=== PATIENT | female | born 1930 | race Caucasian/White ===

== ENCOUNTER 2016-09-10 14:28 | Inpatient (IN) | payer MEDICARE ==
[~2016-09-10] VITALS: Ht 167.6 cm; Wt 79.1 kg
[~2016-09-10 14:28] MED LIST: AMLO5TAB2 PO; CEPH500C PO; CHOL10008 PO; CLOP75TA3 PO; FLAX1CAP4 PO; METO25TA6 PO; MULT-1073 PO; NITR0.4T SL; PRAV20TA2 PO; RANI150C4 PO; VIT1CAPS8 PO
[2016-09-10 14:39] VITALS: BP 160/50; PULSE 64; RESP 20; O2SAT 99
--- NOTE | 2016-09-10 14:40 | ED.REPORT ---
HPI-Neurologic Deficit Date of Service Sep 10, 2016 ED Provider: Zane Jain DO. Patient is an 86 year female with a history of TIA, hypertension, sensory issues in her lower extremities and multiple other concerns presenting to the ED via EMS complaining of a near syncopal event. While the patient was sitting with friends after lunch, she suddenly had tunnel vision with "black spots all over and big white lights" and felt as though she was going to lose consciousness. She also admits to diaphoresis, weakness, fatigue, and a brief episode of aphasia. All of her symptoms except for the fatigue and weakness resolved within moments. The patient denies paralysis on one side of her body, pain or vision loss. She experienced similar symptoms without the neurological deficit in 05/2016. Nursing Notes Stated Complaint: ALTERED LOC Chief Complaint: Neuro Symptoms/ Deficits Nursing Notes Reviewed: Yes Allergies: Coded Allergies: iodine (Verified Allergy, Severe, Anaphylaxis, 03/28/15) latex (Verified Allergy, Severe, Rash, 03/28/15) amoxicillin (Verified Allergy, Unknown, 09/10/16) clavulanic acid (Verified Allergy, Unknown, 09/10/16) levofloxacin (Verified Allergy, Unknown, 09/10/16) simvastatin (Verified Allergy, Unknown, 09/10/16) hydrocodone (Verified Adverse Reaction, Intermediate, 03/28/15) CARDIAC PALPITATIONS Scheduled Amlodipine (Amlodipine) 5 Mg Tablet 10 MG PO DAILY Cephalexin (Cephalexin) 500 Mg Capsule 500 MG PO TID Cholecalciferol (Vitamin D3) (Vitamin D3) 1,000 Unit Tab.chew 1,000 UNIT PO DAILY Clopidogrel Bisulfate (Plavix) 75 Mg Tablet 75 MG PO DAILY Flaxseed/Omega3,6,9/Fatty Acid (Flax Seed Oil 1,300 mg Softgel) 1 Each Capsule 1 EACH PO DAILY Metoprolol Tartrate (Metoprolol Tartrate) 25 Mg Tablet 25 MG PO BID Multivits-Min/FA/Lycopene/Lut (Centrum Silver Tablet) 1 Each Tablet 1 EACH PO DAILY Pravastatin (Pravastatin) 20 Mg Tablet 20 MG PO DAILY Ranitidine (Ranitidine) 150 Mg Capsule 150 MG PO BID Vit C/Vit E/Lutein/Min/[place]-3 (Ocuvite Softgel) 1 Each Capsule 1 EACH PO DAILY Scheduled PRN Nitroglycerin SL (Nitrostat) 0.4 Mg Tablet 0.4 MG SL Q5MIN PRN PRN For Chest Pain General Time Seen by Provider: 14:44 Chief Complaint Other (possible near syncopal episode) Hx Obtained From: Patient, EMS Arrived By: Ambulance Sudden in Onset?: Yes Recent Healthcare: No recent hospitalization, Recent doctor visit Similar Sx Previous: Yes Risk Factors NIH Stroke Scale Level of Consciousness: Alert and responsive (0) Ask Month & Age: Both questions right (0) Open/Close Eyes/Hand Grades 1 Thru 5 Teacher: Performs both tasks (0) Horizontal EO Movements: None (0) Visual Boyd: No visual loss (0) Facial Palsy: Minor paralysis (1) (slight facial droop on the left side) Right Arm Motor Drift (10s): No drift 10 sec (0) Left Arm Motor Drift (10s): No drift 10 sec (0) Right Leg Motor Drift (5s): No drift 5 sec (0) Left Leg Motor Drift (5s): No drift 5 sec (0) Limb Ataxia FNF/Heel-Suggs: No ataxia (0) Sensation (Arms/Legs/Face): P-prick dull but felt (1) (left leg, pre- existing) Language Aphasia: No aphasia, normal (0) Dysarthria: No dysarthria, normal (0) Extinction/Inattention: No exctinct/inattent (0) NIHSS Score: 2 Time NIHSS Performed: 14:45 Date NIHSS Performed: Sep 10, 2016 Past Medical History Past Medical History Notes: Cook Helper Dessert: Dr. Seaman PCP: Dr. Rodríguez Cantrell Past Medical History Cataracts Hiatal hernia pneumonia kidney stones sensory issues in lower extremities DJD skin cancer Reports: Hypertension, Stroke, Transient ischemic attack Past Surgical History bilateral knee replacement bladder back surgery Reports: Appendectomy, Cholecystectomy, Hysterectomy Family History Noncontributory Smoking History Former Smoker Social History Alcohol Use: Denies alcohol use Drug Use: Denies drug use Other Social History: Local resident Ambulatory Status Independent Review of Systems Review of Systems Note: brief episode of aphasia denies paralysis denies vision loss Constitutional: Reports: Fatigue Respiratory: Denies: Non-productive cough, Shortness of breath Cardiovascular: Denies: Chest pain GI: Denies: Abdominal pain Musculoskeletal: Denies: Back pain, Neck pain Skin: Reports Diaphoresis Neurologic: Reports: Change LOC, Lightheaded, Vision change ("black spots all over and big white lights"), Weakness, Denies: Numbness Complete sys rev & neg: except as marked. Physical Exam Initial Vital Signs Vital Signs (First) Date Time Temp Pulse Resp B/P Pulse Ox O2 Delivery O2 Flow Rate FiO2 09/10/16 14:39 36.4 64 20 160/50 99 Nasal Cannula 2 Initial VS: Reviewed General/Constitutional: Awake, Alert, No acute distress Head / Eyes: Atraumatic, Normocephalic, PERRL, EOMI Respiratory / Chest: Atraumatic, Breath sounds NL, Breath sounds = bilat, No respiratory distress Cardiovascular: Heart rate NL, Regular rhythm Heart Sounds / Murmur: Positive: Systolic murmur present.. (at the upper right sternal border) Neurologic: Oriented X3, Speech NL ENT: Atraumatic, Airway patent, Mucous membranes moist Neck: Atraumatic, Supple, Full range of motion Abdomen: Atraumatic, Soft, Non-tender Back: Atraumatic, Full range of motion Upper Extremity / MS: Atraumatic, Full range of motion Lower Extremity / Pelvis / MS: Atraumatic, Full range of motion Skin: Atraumatic, Color NL, No rash, Warm, Dry Psychiatric: Affect NL, Mood NL Interpretation & Diagnostics Lab Results Interpretation Result Diagram: 09/10/16 1454 09/10/16 1454 Test 09/10/16 14:54 09/10/16 15:18 White Blood Count 6.5th/mm3 (3.8-10.1) Red Blood Count 4.03mil/mm3 (3.90-5.20) Hemoglobin 12.1g/dL (12.0-15.6) Hematocrit 35.6% (35.0-46.0) Mean Corpuscular Volume 88.3fL (81-100) Mean Corpuscular Hemoglobin 30.0pg (27.0-35.0) Mean Corpuscular Hemoglobin Concent 34.0% (32.0-37.0) Red Cell Distribution Width 12.4% (12.3-15.4) Platelet Count 257bil/L (150-400) Neutrophils (%) (Auto) 54.8% (40-74) Lymphocytes (%) (Auto) 29.7% (14-46) Monocytes (%) (Auto) 12.4% (4-12) Eosinophils (%) (Auto) 2.6% (0-5) Basophils (%) (Auto) 0.3% (0-3) Prothrombin Time 10.6sec (8.1-12.5) Prothromb Time International Ratio 0.99ratio Activated Partial Thromboplast Time 21.4sec (22.8-33.0) Sodium Level 137mEq/L (134-144) Potassium Level 3.8mEq/L (3.5-5.2) Chloride Level 99mEq/L (97-108) Carbon Dioxide Level 22mmol/L (18-29) Blood Urea Nitrogen 29mg/dL (8-27) Creatinine 1.52mg/dL (0.57-1.00) Estimat Glomerular Filtration Rate 47mL/min (>59) Glucose Level 135mg/dL (60-99) Calcium Level 9.8mg/dL (8.5-10.1) Total Bilirubin 0.5mg/dL (0.0-1.2) Aspartate Amino Transf (AST/SGOT) 20U/L (0-50) Alanine Aminotransferase (ALT/SGPT) 14U/L (0-32) Alkaline Phosphatase 50U/L (25-165) Troponin T < 0.010ug/L (0.0-0.011) Total Protein 7.3g/dL (6.4-8.4) Albumin 4.1g/dL (3.4-5.0) Hold Purple Top Tube Received (Received) Hold Blue Top Tube Received (Received) Hold [place] Top Tube Received (Received) Hold [place] Top Tube Received (Received) ECG Interpretation ECG Interpretation: RBBB Time: 15:21 Interpreted by: ED physician Normal ECG Interpretation: Normal rate (60), Normal sinus rhythm X-Ray Chest Interpretation Chest Xray Interpretation: IMPRESSION: Stable chest. No acute cardiopulmonary process is suspected. Dictated by: Jostin Smith M.D. on 09/10/2016 at 14:24 Approved by: Jostin Smith M.D. on 09/10/2016 at 14:24 Interpretation / Wet Read by: Interpret - Radiologist X-Ray Interpretation Xray Interpretation: CT Head Interpretation IMPRESSION: 1. No acute intracranial abnormalities. 2. Stable cerebral volume loss and chronic microvascular ischemic changes. 3. A small air-fluid level in the left maxillary sinus. This study fulfills neurological imaging criteria for inclusion or exclusion of acute stroke therapies based on available published neurological guidelines. Dictated by: Tk Uriostegui M.D. on 09/10/2016 at 15:08 Approved by: Tk Uriostegui M.D. on 09/10/2016 at 15:11 Interpretation / Wet Read by: Interpret - Radiologist Re-Eval/Medical Decision Med Decision/Clinical Course Concern for either unprovoked syncope which could be cardiogenic or possibly a CVA. Patient will be admitted. Source of Hx: Old records Re-Evaluation/Progress #1: Time of Eval: 15:04 Patient Status: Condition improved Re-Evaluation/Progress Note: Rechecked patient and discussed the risks, benefits and alternatives to TPA. The patient declines TPA. All questions were addressed. Re-Evaluation/Progress #2: Time of Eval: 15:36 Patient Status: Condition improved Re-Evaluation/Progress Note: Patient rechecked, who is resting. The diagnosis and plan for admission are discussed. The pt understands and agrees with the plan. All questions are addressed at this time. Consultation #1: Referral / Consult Name: Marina Dougherty MD Consulted With: Neurology Call Returned at: 15:46 Scalehouse Attendant: Agrees with eval, Agrees with plan Note: Consult with Dr. Dougherty, neurologist, who recommends admission on telemtry and that the patient needs a stroke workup and echo. Consultation #2: Referral / Consult Name: Elissa Sahu DO Consulted With: Hospitalist Call Returned at: 16:18 Scalehouse Attendant: Agrees with eval, Agrees with plan, Accepts admit Note: Consult with Dr. Sahu, hospitalist, who agrees with the plan to admit the patient. Counseled Regarding: Diagnosis, Lab results, Need for admission Discharge & Departure Impression: Primary Impression: Near syncope Additional Impression: CVA (cerebral vascular accident) Disposition: ADMITTED TO HOSPITAL Discharge Condition All VS Reviewed: Yes Condition: Stable Referrals: Rodríguez Cantrell MD (PCP) Scribe Attestation Portions of this note were transcribed by Olimpia Smith and Tony Salazar. I, Dr. Phillip personally performed the history, physical exam and medical decision-making; I reviewed and confirmed the accuracy of the information in the transcribed note. Signed by: Olimpia Smith and Fanny Sarmiento, and [phone]. copies to: Rodríguez Cantrell MD, Timothy S DO Sep 10, 2016 14:40 Marni Smith Sep 10, 2016 14:50 TONY SALAZAR Sep 10, 2016 16:44
[2016-09-10] MEDS ORDERED: 0.9% Sodium Chloride 1,000 ML IV ONE (14:51)
[2016-09-10 15:03] LABS: BASOPHILS % (AUTO) 0.3 % (0-3); EOSINOPHILS % (AUTO) 2.6 % (0-5); MONOCYTES % (AUTO) 12.4 % (4-12); Mean Corpuscular Volume 88.3 fL (81-100); NEUTROPHILS % (AUTO) 54.8 % (40-74); Platelet Count 257 bil/L (150-400)
[2016-09-10 15:07] LABS: INR 0.99 ratio
[2016-09-10 15:09] VITALS: BP 146/43; PULSE 64; RESP 20; O2SAT 100
--- NOTE | 2016-09-10 15:12 | DRSVH ---
PROCEDURE: CT BRAIN (TPA) ([id number]) INDICATIONS: Stroke TECHNIQUE: Noncontrast 4.5 mm thick angled axial sections acquired from the foramen magnum to the vertex, with c oronal reformats. COMPARISON: [facility], CT, BRAIN W/O CONTRAST, 10/14/2013, 13:36. FINDINGS: Image quality: Excellent. CSF spaces: Basal cisterns are patent. No extra-axial fluid collections. The ventricles are symmet seema in size and shape. Brain: No intracranial bleeds or masses. There is moderate cerebral volume loss for age, with resul tant ventricular and sulcal prominence. There are mild to moderate periventricular and deep white ma tter chronic small vessel ischemic changes, unchanged. There is intracranial internal carotid artery atherosclerosis. Skull and face: Calvarium and visualized facial bones appear intact, without suspicious lesions. Sinuses: Small air-fluid level in the left maxillary sinus. The mastoids are clear. IMPRESSION: 1. No acute intracranial abnormalities. 2. Stable cerebral volume loss and chronic microvascular ischemic changes. 3. A small air-fluid level in the left maxillary sinus. This study fulfills neurological imaging criteria for inclusion or exclusion of acute stroke therapie s based on available published neurological guidelines. Dictated by: Tk Uriostegui M.D. on 09/10/2016 at 15:08 Approved by: Tk Uriostegui M.D. on 09/10/2016 at 15:11
[2016-09-10 15:22] LABS: TROPONIN T < 0.010 ug/L (0.0-0.011)
--- NOTE | 2016-09-10 15:26 | DRSVH ---
PROCEDURE: X-RAY CHEST ONE VIEW, PORTABLE ([id number]) INDICATIONS: near syncope TECHNIQUE: One view of the chest was acquired. COMPARISON: [facility], CR, XR CHEST 1VW (PORTABLE), 04/15/2016, 14:17. [facility], CR, XR CHEST 2VW, 03/27/2016, 15:17. FINDINGS: Surgical changes and devices: None. Lungs and pleura: No pleural effusions or pneumothorax. Lungs are clear. Mediastinum: Mediastinal contours appear normal. Heart size is normal. There is aortic atheroscler osis. Bones and chest wall: No suspicious bony lesions. Calcific tendinitis of the right shoulder is inci dentally noted. Overlying soft tissues appear unremarkable. IMPRESSION: Stable chest. No acute cardiopulmonary process is suspected. Dictated by: Jostin Smith M.D. on 09/10/2016 at 14:24 Approved by: Jostin Smith M.D. on 09/10/2016 at 14:24
[2016-09-10] MEDS ORDERED: Alum-Mag Hydrox-Simeth 30 mL Suspension PO PRN (16:25)
[2016-09-10] MEDS ORDERED: Ondansetron 2 mg/mL 2 mL Inj IVPUSH PRN (16:25)
[2016-09-10 16:36] VITALS: BP 146/43; PULSE 64; RESP 16; O2SAT 100
--- NOTE | 2016-09-10 17:00 | NUR ---
Evaluation completed. Please go to "Notes" then click on "Assessments and Notes" (bottom left corner of screen). Then select appropriate discipline tab on top of screen.
--- NOTE | 2016-09-10 17:20 | NUR ---
ADMIT Report received from Mariah Josue RN in ED. Pt brought onto floor at 1720 via WC. Pt strong and steady on feet. SBA for safety. Pt oriented to unit, room, and call light. Board updated with plan and directions given to maintain safety and promote care. Neuro checks show no deficits. Very minor R side fascial droop from previous CVA told in report and to continue to monitor for changes. Tele placed, socks on, and belongings waivers signed. MED REC completed, and admission interventions completed.
[2016-09-10] MEDS ORDERED: LABE300T PO (17:35)
[2016-09-10] MEDS ORDERED: CLOP75TA28 PO (17:35)
[2016-09-10] MEDS ORDERED: DILT180C53 PO (17:35)
[2016-09-10] MEDS ORDERED: PRAV40TA PO (17:35)
[2016-09-10] MEDS ORDERED: LISI10TA PO (17:35)
[2016-09-10] MEDS ORDERED: DEXT1DRO8 BOTH_EYES (17:56)
[2016-09-10] MEDS ORDERED: PRV40T PO (17:57)
[2016-09-10 18:07] VITALS: BP 181/62; PULSE 63; RESP 20; O2SAT 99
[2016-09-10] MEDS ORDERED: Heparin 5,000 Unit/mL Inj SUBQ SCH (18:15)
[2016-09-10] MEDS ORDERED: Labetalol 5 mg/mL 4 mL Inj IVPUSH PRN (18:15)
[2016-09-10] MEDS ORDERED: Polyethylene Glycol (PEG) 17 Gm Powder PO PRN (18:15)
[2016-09-10 18:45] LABS: Magnesium 2.3 mg/dL (1.6-2.6)
[2016-09-10 19:04] VITALS: PULSE 69
[2016-09-10] MEDS ORDERED: LORazepam 0.5 mg Tablet PO ONE (20:15)
--- NOTE | 2016-09-10 20:33 | PCM.HPMED ---
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 She states that she just felt like she had tunnel vision with black and white spots and they felt like she was about to lose consciousness. At the time she felt light light headed, was diaphoretic, felt to week in arms and legs, fatigue and said she was aphasic. All her symptoms quickly resolved. She was taken to the ER where stroke assessment was done a stroke scale of 2 was given TPA was offered and patient declined. She confirms this in the room. She was given baby aspirin. Her troponin was negative. Chest x-ray was no acute except small air-fluid level in the maxillary sinus. EKG showed right bundle branch block. Labs showed a creatinine of 1.5 to B UN of 29. A CT of head showed only chronic microvascular ischemic changes and negative for acute findings. Patient currently has mild headache, no weakness nor numbness tingling over the face no chest pain no abdominal pain no indigestion. She denies shortness of breath An echo done on 05/15/15 showed 60-65% E ejection fraction, moderate dilation of left atrium, mild increased dimetria V aorta. In the room patient states she is back to her baseline, her weakness symptoms have resolved completely, she is carrying on a conversation in fact she was able to give very detailed history. She is a great historian. Review of Systems: On review of systems negative except as mentioned in the history of present illness Allergies Coded Allergies: iodine (Verified Allergy, Severe, Anaphylaxis, 09/10/16) latex (Verified Allergy, Severe, Rash, 09/10/16) amoxicillin (Verified Allergy, Unknown, 09/10/16) clavulanic acid (Verified Allergy, Unknown, 09/10/16) levofloxacin (Verified Allergy, Unknown, 09/10/16) simvastatin (Verified Allergy, Unknown, 09/10/16) hydrocodone (Verified Adverse Reaction, Intermediate, 09/10/16) CARDIAC PALPITATIONS PMH CVA, TIA, hypertension, sensory issues in the lower extremities, DVT in left leg 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, cataracts, had a hernia, small pneumonia, stones, skin cancer Surgical History Bilateral knee replacements, latter surgery, back surgery, appendectomy, cholecystectomy, hysterectomy Family History Mother: Heart disease Dad: of heart disease at 69 Social History Hx Alcohol Use: No Hx Substance Use: No Hx Tobacco Use: Yes (Quit 1966) Smoking Status: Former Smoker Living Arrangement: Alone Exam Vital Signs Vital Sign - Last Date Time Temp Pulse Resp B/P Pulse Ox O2 Delivery O2 Flow Rate FiO2 09/10/16 16:36 64 16 146/43 100 Room Air 09/10/16 14:39 36.4 2 Exam Gen.: No acute distress HEENT: Left facial droop can be seen, otherwise normocephalic atraumatic Heart: Regular rate and rhythm no S3-S4 murmurs Lungs: Clear to auscultation no crackles or wheezes Abdomen soft nontender non-normal bowel sounds Extremities: Negative for edema Skin: Surgical moody in both knees are seen Neuro: CN II through XII: With the exception of facial droop grossly normal. Somewhat unsteady with Romberg's but did not lose balance are negative for arm drift, was able to do finger to nose, heel to wang test. Babinski's toes down. Achilles reflexes 1+ Psych: Negative for anxiety Lab and Diagnostics Result Diagram: 09/10/16 1454 09/10/16 1454 X-Rays, CTs and MRIs [facility] Diagnostic Imaging Department [place], [place] [id number] Patient Name: DALLIN BEY MR#: [id number] [place] [facility] [place]ing Phys: Zane Phillip DO Date of Service: 09/10/16 1451 PROCEDURE: CT BRAIN (TPA) ([id number]) INDICATIONS: Stroke TECHNIQUE: Noncontrast 4.5 mm thick angled axial sections acquired from the foramen magnum to the vertex, with coronal reformats. COMPARISON: [facility], CT, BRAIN W/O CONTRAST, 10/14/2013, 13:36. FINDINGS: Image quality: Excellent. CSF spaces: Basal cisterns are patent. No extra-axial fluid collections. The ventricles are symmetric in size and shape. Brain: No intracranial bleeds or masses. There is moderate cerebral volume loss for age, with resultant ventricular and sulcal prominence. There are mild to moderate periventricular and deep white matter chronic small vessel ischemic changes, unchanged. There is intracranial internal carotid artery atherosclerosis. Skull and face: Calvarium and visualized facial bones appear intact, without suspicious lesions. Sinuses: Small air-fluid level in the left maxillary sinus. The mastoids are clear. IMPRESSION: 1. No acute intracranial abnormalities. 2. Stable cerebral volume loss and chronic microvascular ischemic changes. 3. A small air-fluid level in the left maxillary sinus. This study fulfills neurological imaging criteria for inclusion or exclusion of acute stroke therapies based on available published neurological guidelines. Dictated by: Tk Uriostegui M.D. on 09/10/2016 at 15:08 Approved by: Tk Uriostegui M.D. on 09/10/2016 at 15:11 12-lead ECG A bundle-branch block Assessment & Plan This is a pleasant 86-year-old woman presenting after stroke like symptoms to the ER she is currently being followed with MRI and other stroke workup Acute assessment Assessment #1 CVA --Consulted her neurologist Dr. Kristin Dougherty, she recommends an subcutaneous for DVT prophylaxis, MRI/MRA stroke protocol, echo tomorrow a.m., labetalol when necessary for hypertension, Plavix daily, we appreciate her recommendations -- Telemonitoring -- MRI/MRA stroke protocol is ordered -- Echo tomorrow a.m. -- Continue Plavix -- Labetalol when necessary with parameters for blood pressure control -- Speech therapy, PT/OT -- Carotid ultrasound Assessment #2 Anxiety: -- Patient is requesting minor sedation prior to MRI due to claustrophobia -- 0.5 mg by mouth Ativan 1 time dose only to be used for MRI Chronic assessments: Assessment #2 GERD: The by mouth Assessment #3 Chronic Hypertension: Hold home medications, labetalol when necessary as above DVT prophylaxis: Heparin subcutaneous 3 times a day IV fluids: 80 mL/h nss CODE STATUS: Currently patient is saying she is okay with CPR but does not want mechanical ventilation or light support. Alternate decision-maker Ovidio Bey [phone] Resuscitation Status: Limited Interventions (okay with CPR, does not want mechanical life support or intubation or ventilation) Elissa Sahu DO Sep 10, 2016 17:23
[2016-09-10] MEDS ORDERED: PRAVASTATIN 40 MG PO SCH (21:00)
[2016-09-10 21:18] VITALS: BP 183/82; PULSE 66; RESP 18; O2SAT 99
[2016-09-10] MEDS: Heparin 5,000 Unit/mL Inj SUBQ SCH (21:33)
[2016-09-10] MEDS: 0.9% Sodium Chloride 1,000 ML IV SCH (21:34)
--- NOTE | 2016-09-10 21:47 | DRSVH ---
PROCEDURE: MRA ANGIOGRAM HEAD WITHOUT CONTRAST ([id number]) INDICATIONS: MOUTH DROOP/ CVA SYMPTOMS TECHNIQUE: Noncontrast axial 3-D ulba-rb-oqefix MR angiogram, with 3-dimensional maximum intensity projection (M IP) reformats of the internal carotid arteries and posterior circulation then performed. COMPARISON: [facility], MR, MR BRAIN WO CON, 09/10/2016, 20:49. [facility], CT, BRAIN (TPA), 09/10/2016, 15:01. FINDINGS: Image quality: Excellent. Anterior circulation: Intracranial internal carotid arteries demonstrate normal size and intralumina l flow signal. The flow within the paired anterior cerebral arteries is normal and symmetric. The f low within the middle cerebral arteries is normal and symmetric. The anterior communicating artery i s seen. No stenoses, occlusions, or aneurysms. Posterior circulation: Visualized portions of the vertebral arteries demonstrate normal caliber, and join to form a normal appearing basilar artery. The flow within the posterior cerebral arteries is normal and symmetric. No stenoses, occlusions, or aneurysms. IMPRESSION: Normal intracranial MR angiogram. Dictated by: Dylan Yi M.D. on 09/10/2016 at 21:44 Approved by: Dylan Yi M.D. on 09/10/2016 at 21:46
--- NOTE | 2016-09-10 21:49 | DRSVH ---
PROCEDURE: MRI BRAIN WITHOUT CONTRAST ([id number]) INDICATIONS: Mouth droop/CVA sxs TECHNIQUE: Noncontrast axial T1 spin echo, axial T2 fast spin echo, sagittal and axial FLAIR, coronal T2 fast sp in echo, axial gradient echo, axial diffusion and ADC through the brain. COMPARISON: [facility], MR, MR ANGIO HEAD WO CON, 09/10/2016, 20:44. [facility], CT, BRAIN (TPA), 09/10/2016, 15:01. FINDINGS: Image quality: Excellent. CSF Spaces: Basal cisterns are patent. No extra-axial fluid collections. Ventricles are normal in size and shape. Brain: No intracranial masses or hemorrhage. Mantilla/white matter interface is normal. Brainstem appe ars normal. Diffusion-weighted images demonstrate no acute ischemic insult. No chronic ischemic ins ults. Normal intravascular flow voids are present. Skull and face: Calvarium has normal marrow signal. Orbits appear normal. Sinuses: Sinuses and mastoids are clear. IMPRESSION: Moderate microvascular atherosclerotic change within the deep white matter of each hemis phere, expected for age. No acute disease. Dictated by: Dylan Yi M.D. on 09/10/2016 at 21:46 Approved by: Dylan Yi M.D. on 09/10/2016 at 21:48
--- NOTE | 2016-09-10 22:26 | PCM.ADCARE ---
Advance Care Planning Note Purpose of Encounter: Discuss goals of care, get informaiton on what are patient's wishes regarding CPR and other interventions Parties in Attendance: Patient and myself Decisional Capacity: Good Subjective: patient stated that she has an advanced directive filled out and it is somwhere in the hosp documents. I mentioned to her that she needs a POLST that paulion be carried through her admissions, gave her a copy to review. Objective: Patient appears to be not quite ready to ill out the POLST. She did not she does not want to be on mechanicalventilaiton/intubation Goals of Care Determinations: As above. She will consider the quesitons from POLST tonight. Plan: Will review the POLST tomorrow. CODE STATUS: CPR ok, but no intubation or ventilation Time Spent Adv.Care Plannin min Adv. Care Plan Documenation: As above. Elissa Sahu DO Sep 10, 2016 17:23
[2016-09-10 23:41] LABS: APPEARANCE,URINE SLIGHTLY CLOUDY (CLEAR,HAZY); COLOR,URINE STRAW (YELLOW); OCCULT BLOOD,URINE TRACE (NEGATIVE); UROBILINOGEN,URINE NORMAL (NORMAL)
[2016-09-11] VITALS (12 sets, daily range): BP systolic 144–210; BP diastolic 67–81; PULSE 59–79; RESP 12–20; O2SAT 94–100
[2016-09-11] MEDS: Heparin 5,000 Unit/mL Inj SUBQ SCH ×3 (05:07→20:08)
--- NOTE | 2016-09-11 05:42 | NUR ---
Status/Activity pt has been resting in bed quietly most of the shift. Denies pain/nausea. Observed no facial droop,arm drift, slurring of speech or tongue deviation. Ambulated multiple times to the restroom with SBA for safety. Denied dizziness/lightheadedness. will continue to monitor.
[2016-09-11 06:42] LABS: BASOPHILS % (AUTO) 0.2 % (0-3); EOSINOPHILS % (AUTO) 3.2 % (0-5); Mean Corpuscular Hemoglobin 29.9 pg (27.0-35.0); Mean Corpuscular Volume 88.2 fL (81-100); NEUTROPHILS % (AUTO) 56.7 % (40-74); Platelet Count 246 bil/L (150-400)
[2016-09-11] MEDS: Artificial Tears 15 mL Ophthalmic Solution BOTH_EYES SCH (08:30)
[2016-09-11] MEDS: 0.9% Sodium Chloride 1,000 ML IV SCH (09:05)
[2016-09-11] MEDS: Diltiazem CD 180 mg ER24 Capsule PO SCH (09:12)
[2016-09-11] MEDS ORDERED: 0.9% Sodium Chloride 500 ML IV ONE (09:25)
--- NOTE | 2016-09-11 10:16 | NUR ---
Pt. screened. Discussed with physical therapy. No OT needs identified. DC order
--- NOTE | 2016-09-11 10:57 | NUR ---
Social Work: Initial Assessment / D/C Data: Pt is an 86 y/o female admitted for presyncope, possible CVA. D/C orders are in. Pt's PCP is Dr Cantrell, pt's insurance is Medicare with [employer] supp. EMR reviewed. Readmit score not listed. APPLICATION CHEMIST met with pt at bedside, role explained. Pt states that she lives in [place] alone in a single story home with 2 stairs to enter, pt uses no DME. Pt states she has hx of and SNF at [facility]. Pt does not have LTC or VA benefits and is not a caregiver. PT worked with pt, cleared for home. No d/c needs anticipated at this time. APPLICATION CHEMIST will continue to follow if needs arise. Assessment: Pt who is independent at baseline. Plan: Pt will d/c home via POV with son today. No d/c needs anticipated at this time. APPLICATION CHEMIST will continue to follow if needs arise. JAMES Ramirez Addendum: 09/11/16 at 1106 by MARYLIN MCKEON Amended: Links added.
--- NOTE | 2016-09-11 11:09 | PCM.DIMED ---
Discharge Instructions Date of Service Sep 11, 2016 Dates of Hospitalization Sep 10, 2016 at 16:44 Discharge Diagnosis Discharge Diagnosis Syncope, vasovagal, BPPV, HTN, Hx of DVT Medication Instructions Please take your home medication meclizine as needed. Please work with PT/OT for 2 weeks on vestibular conditioning and exercises Please avoid turning your head too rapidly. Please follow up with your PC in 2 weeks, your neurologist in one week and access lead in 2 weeks. Diet Low fat, Low Sodium Activity No restrictions Call your provider Fever or Chills, Shortness of breath, Bleeding, Chest pain, Vomitting, Excessive diarrhea, Weakness (unilateral) Patient Instructions Follow-up plan Please schedule f/u with PCP in 2 weeks Please schedule f/u with Dr. Kristin Dsouza in one- week Please schedule f/u with Cardiology in 2 weeks PT/OT outpatient for vestibular therapy for 2 weeks for BPPV Elissa Sahu DO Sep 11, 2016 11:09
[2016-09-11] MEDS ORDERED: LISI-567 PO (11:13)
--- NOTE | 2016-09-11 14:21 | DRSVH ---
PROCEDURE: US BILATERAL DUPLEX DOPPLER IMAGING OF THE CAROTIDS ([id number]) INDICATIONS: stroke TECHNIQUE: Color and pulse Doppler interrogation was performed of both carotid systems, with image documentation and velocity measurements. COMPARISON: None. FINDINGS: All stenosis calculations are based on NASCET criteria. Right side: Brachial blood pressure: 181/62 mm Hg. Common Carotid Artery(Distal) PSV: 52.70 cm/s Internal Carotid Artery PSV- Proximal: 74 cm/s Mid-lon.90 cm/s Distal: 100 cm/s EDV - Proximal: 17.30 cm/s Mid-lon cm/s Distal: 24.10 cm/s External Carotid Artery(Proximal) PSV: 124.10 cm/s ICA/CCA PSV ratio: 1.9 Mantilla scale imaging description: Scattered calcified plaque in the bifurcation Percent internal carotid artery stenosis: Less than 50%. Vertebral artery: Flow direction is antegrade. Left side: Brachial blood pressure: Not obtained due to IV. Common Carotid Artery(Distal) PSV: 82.90 cm/s Internal Carotid Artery PSV - Proximal: 189 cm/s Mid-lon.70 cm/s Distal: 84.40 cm/s EDV - Proximal: 30.20 cm/s Mid-lon.90 cm/s Distal: 14.30 cm/s External Carotid Artery(Proximal) PSV: 86.80 cm/s ICA/CCA PSV ratio: 50-69% Mantilla scale imaging description: Scattered plaque in the bifurcation Percent internal carotid artery stenosis: 50-69%. Vertebral artery: Flow direction is antegrade. IMPRESSION: 50-69% left ICA stenosis. Less than 50% right ICA stenosis. Dictated by: Russ Doan M.D. on 09/11/2016 at 14:18 Approved by: Russ Doan M.D. on 09/11/2016 at 14:19
--- NOTE | 2016-09-11 15:40 | NUR ---
Case Management: Patient signed IMM. Explained appeal rights. Copy given to patient. signed copy in chart. CPerryRNCCM.
[2016-09-11] MEDS ORDERED: Labetalol 5 mg/mL 4 mL Inj IVPUSH ONE (17:50)
--- NOTE | 2016-09-11 18:34 | NUR ---
High BP At 1650 pt had BP 192/71, notified and pt just given PRN IV BP med. Scheduled BP medication already increased by hospitalist today. Will continue to monitor and pass this along to NOC nurse.
--- NOTE | 2016-09-11 18:42 | NUR ---
Orthostatic BP Ortho BP's done x1 per hospitalist. Lying 178/72, sitting 163/79, and standing 185/74. notified Addendum: 09/11/16 at 1915 by ARYA DIALLO RN BP 144/79 now
--- NOTE | 2016-09-11 20:10 | NUR ---
spiritual care:pt request conversational visit. pt reported on medical event, her emotional state, sense of meaning and cherelle she derives from activities including cheondoism related ones, friendships and family connections. pt glad for invitaiton to rec. caring ratoprinter visitor Addendum: 09/11/16 at 2012 by DRU GUNN CM caring ratoprinter dana bartlett visited, lengthy cheerful, conversation.
--- NOTE | 2016-09-11 20:51 | PCM.PNMED ---
Subjective Date of Service Sep 11, 2016 Subjective Patient is seen and examined. All her home medications were restarted today. We discussed better controlling her hypertension today prior to discharge him tomorrow. We also discussed her image findings so far. She states that she is emanating in the hallways and has no new issues. Exam Vital Signs Vital Sign - Last Date Time Temp Pulse Resp B/P Pulse Ox O2 Delivery O2 Flow Rate FiO2 09/11/16 20:06 36.8 61 12 210/80 99 Room Air 09/10/16 14:39 2 Intake and Output 09/10/16 09/10/16 09/11/16 Cumulative From/Thru 15:00 23:00 07:00 09/10/16 14:39 - 09/11/16 06:30 Intake Total 0 ml 1098 ml 1098 ml Output Total 1 ml 850 ml 851 ml Balance -1 ml 248 ml 247 ml Intake Oral 0 ml 637 ml 637 ml IV Total 461 ml 461 ml Output Urine Total 850 ml 850 ml Urine/Stool Mix 1 ml 1 ml # Voids 1 1 # Bowel Movements 0 0 Exam Gen.: No acute distress HEENT: Mouth droop as before Heart: Regular rate and rhythm no S3-S4 sounds Lungs: No crackles or wheezes. Auscultation Abdomen: soft nontender Neuro: alert and oriented by 3, cranial nerve exam is grossly normal except with the exception of facial droop Romberg's she had some sense of unbalance negative for arm drift Anitha Hallpike was performed positive for nystagmus on the left side Psych: Negative for anxiety IVs and Medications IV Fluids 500 mL bolus this a.m. and then discontinued maintenance fluids Medications Reviewed: Medications were reviewed in detail Lab and Diagnostics Result Diagram: 09/11/1660409/11/16604 X-Rays, CTs and MRIs [facility] [place] [address] Patient Name: DALLIN BEY MR#: [id number] [place] [facility] [place] Phys: Zane Phillip DO Date of Service: 09/10/16 1451 PROCEDURE: CT BRAIN (TPA) ([id number]) INDICATIONS: Stroke TECHNIQUE: Noncontrast 4.5 mm thick angled axial sections acquired from the foramen magnum to the vertex, with coronal reformats. COMPARISON: [facility], CT, BRAIN W/O CONTRAST, 10/14/2013, 13:36. FINDINGS: Image quality: Excellent. CSF spaces: Basal cisterns are patent. No extra-axial fluid collections. The ventricles are symmetric in size and shape. Brain: No intracranial bleeds or masses. There is moderate cerebral volume loss for age, with resultant ventricular and sulcal prominence. There are mild to moderate periventricular and deep white matter chronic small vessel ischemic changes, unchanged. There is intracranial internal carotid artery atherosclerosis. Skull and face: Calvarium and visualized facial bones appear intact, without suspicious lesions. Sinuses: Small air-fluid level in the left maxillary sinus. The mastoids are clear. IMPRESSION: 1. No acute intracranial abnormalities. 2. Stable cerebral volume loss and chronic microvascular ischemic changes. 3. A small air-fluid level in the left maxillary sinus. This study fulfills neurological imaging criteria for inclusion or exclusion of acute stroke therapies based on available published neurological guidelines. Dictated by: Tk Uriostegui M.D. on 09/10/2016 at 15:08 Approved by: Tk Uriostegui M.D. on 09/10/2016 at 15:11 12-lead ECG A bundle-branch block Cardiac Echo Impressions Pending results Additional Diagnostics [facility] [place] [address] Patient Name: DALLIN BEY MR#: [id number] [place] [facility] [place] Ordering Phys: Elissa Sahu Date of Service: 09/10/161823 PROCEDURE: MRI BRAIN WITHOUT CONTRAST ([id number]) INDICATIONS: Mouth droop/CVA sxs TECHNIQUE: Noncontrast axial T1 spin echo, axial T2 fast spin echo, sagittal and axial FLAIR, coronal T2 fast spin echo, axial gradient echo, axial diffusion and ADC through the brain. COMPARISON: [facility], MR, MR ANGIO HEAD WO CON, 09/10/2016, 20: 44. [facility], CT, BRAIN (TPA), 09/10/2016, 15:01. FINDINGS: Image quality: Excellent. CSF Spaces: Basal cisterns are patent. No extra-axial fluid collections. Ventricles are normal in size and shape. Brain: No intracranial masses or hemorrhage. Mantilla/white matter interface is normal. Brainstem appears normal. Diffusion-weighted images demonstrate no acute ischemic insult. No chronic ischemic insults. Normal intravascular flow voids are present. Skull and face: Calvarium has normal marrow signal. Orbits appear normal. Sinuses: Sinuses and mastoids are clear. IMPRESSION: Moderate microvascular atherosclerotic change within the deep white matter of each hemisphere, expected for age. No acute disease. Dictated by: Dylan Yi M.D. on 09/10/2016 at 21:46 Approved by: Dylan Yi M.D. on 09/10/2016 at 21:48 [facility] Diagnostic Imaging Department [place], [place] [id number] Patient Name: DALLIN BEY MR#: [id number] [place] [facility] [place] Ordering Phys: Elissa Sahu DO Date of Service: 09/10/16 1824 PROCEDURE: MRA ANGIOGRAM HEAD WITHOUT CONTRAST ([id number]) INDICATIONS: MOUTH DROOP/ CVA SYMPTOMS TECHNIQUE: Noncontrast axial 3-D [id number] MR angiogram, with 3-dimensional maximum intensity projection (MIP) reformats of the internal carotid arteries and posterior circulation then performed. COMPARISON: [facility], MR, MR BRAIN WO CON, 09/10/2016, 20:49. [facility], CT, BRAIN (TPA), 09/10/2016, 15:01. FINDINGS: Image quality: Excellent. Anterior circulation: Intracranial internal carotid arteries demonstrate normal size and intraluminal flow signal. The flow within the paired anterior cerebral arteries is normal and symmetric. The flow within the middle cerebral arteries is normal and symmetric. The anterior communicating artery is seen. No stenoses, occlusions, or aneurysms. Posterior circulation: Visualized portions of the vertebral arteries demonstrate normal caliber, and join to form a normal appearing basilar artery. The flow within the posterior cerebral arteries is normal and symmetric. No stenoses, occlusions, or aneurysms. IMPRESSION: Normal intracranial MR angiogram. Dictated by: Dylan Yi M.D. on 09/10/2016 at 21:44 Approved by: Dylan Yi M.D. on 09/10/2016 at 21:46 [facility] Diagnostic [place] [address] Patient Name: DALLIN BEY MR#: [id number] [place]: [facility] [place] Ordering Phys: Elissa Sahu DO Date of Service: 09/10/162021 PROCEDURE: US BILATERAL DUPLEX DOPPLER IMAGING OF THE CAROTIDS ([id number]) INDICATIONS: stroke TECHNIQUE: Color and pulse Doppler interrogation was performed of both carotid systems, with image documentation and velocity measurements. COMPARISON: None. FINDINGS: All stenosis calculations are based on NASCET criteria. Right side: Brachial blood pressure: 181/62 mm Hg. Common Carotid Artery(Distal) PSV: 52.70 cm/s Internal Carotid Artery PSV- Proximal: 74 cm/s Mid-lon.90 cm/s Distal: 100 cm/s EDV - Proximal: 17.30 cm/s Mid-lon cm/s Distal: 24.10 cm/s External Carotid Artery(Proximal) PSV: 124.10 cm/s ICA/CCA PSV ratio: 1.9 Mantilla scale imaging description: Scattered calcified plaque in the bifurcation Percent internal carotid artery stenosis: Less than 50%. Vertebral artery: Flow direction is antegrade. Left side: Brachial blood pressure: Not obtained due to IV. Common Carotid Artery(Distal) PSV: 82.90 cm/s Internal Carotid Artery PSV - Proximal: 189 cm/s Mid-lon.70 cm/s Distal: 84.40 cm/s EDV - Proximal: 30.20 cm/s Mid-lon.90 cm/s Distal: 14.30 cm/s External Carotid Artery(Proximal) PSV: 86.80 cm/s ICA/CCA PSV ratio: 50-69% Mantilla scale imaging description: Scattered plaque in the bifurcation Percent internal carotid artery stenosis: 50-69%. Vertebral artery: Flow direction is antegrade. IMPRESSION: 50-69% left ICA stenosis. Less than 50% right ICA stenosis. Dictated by: Russ Doan M.D. on 09/11/2016 at 14:18 Approved by: Russ Doan M.D. on 09/11/2016 at 14:19 Assessment & Plan This is a pleasant 86-year-old woman presenting after stroke like symptoms to the ER she is currently being followed with MRI and other stroke workup Acute assessment Assessment #1 CVA ruled out, she may have had a TIA. --Consulted her neurologist Dr. Kristin Dougherty, we appreciate her recommendations: She called this morning after she lifted the MRI results and states that patient can follow up with neurology and cardiology as outpatient. -- Telemonitoring -- MRI/MRA stroke protocol is ordered: Showed no concern for stroke -- Echo a.m.: Results of pending -- Continue Plavix -- Her home antihypertensive medications are restarted -- Speech therapy, PT/OT -- Carotid ultrasound: Negative for severe or critical stenosis Assessment #2 Anxiety: -- Patient is requesting minor sedation prior to MRI due to claustrophobia -- 0.5 mg by mouth Ativan 1 time dose only to be used for MRI Chronic assessments: Assessment #2 GERD: The by mouth Assessment #3 Chronic Hypertension: Restart home medications. Increase lisinopril to 20 twice a day. One time labetalol IV 20 mg is also given DVT prophylaxis: Heparin subcutaneous 3 times a day IV fluids: None CODE STATUS: Currently patient is saying she is okay with CPR but does not want mechanical ventilation or light support. Alternate decision-maker Ovidio Bey [phone] VTE Prophylaxis: Sub-Q Heparin (Unfractionated) Resuscitation Status: DNR/DNI:Do Not Resuscitate/Intubate (okay with CPR, does not want mechanical life support or intubation or ventilation) Time spent 30 minutes Elissa Sahu DO Sep 11, 2016 20:50
[2016-09-12] VITALS (12 sets, daily range): BP systolic 144–198; BP diastolic 63–80; PULSE 57–69; RESP 16–20; O2SAT 95–100
[2016-09-12] MEDS: Heparin 5,000 Unit/mL Inj SUBQ SCH ×3 (05:37→20:25)
--- NOTE | 2016-09-12 06:21 | NUR ---
High blood pressure BP up into 200s systolic before evening meds. After evening meds down to 170s then up again to 190s per SUPERANNUATION CLERK. RN rechecked and in 160s systolic. PRN labetelol had been already ordered so it was administered to patient. Pt is asymptomatic. Pt slept through most of the night.
[2016-09-12] MEDS: Diltiazem CD 180 mg ER24 Capsule PO SCH (08:15)
[2016-09-12] MEDS: Artificial Tears 15 mL Ophthalmic Solution BOTH_EYES SCH (08:15)
[2016-09-12] MEDS ORDERED: Labetalol 5 mg/mL 20 mL Inj IV PRN (08:30)
--- NOTE | 2016-09-12 11:20 | NUR ---
High BP Pt BP high beginning of shift with systolic in mid 180's both manual and auto cuff when taken by RN. Scheduled medications given and BP dropped to 148/70 at 0915. aware, continuing to monitor.
--- NOTE | 2016-09-12 11:46 | DRSVH ---
[facility] [address] [place] [address] Echocardiogram Report Name: DALLIN TERAN Date: 09/12/2016 Height: 66 in Hospital Exam Location: [facility] Weight: 177 lb Gender: Female BSA: 1.9 m2 : 1930 Age: 86 yrs BP: 160/80 mmHg Reason For Study: STROKE Ordering Physician: HOSPITALIST [facility] Performed By: Knvg Newby Referring Physician: Kirill GALVAN Interpretation Summary The ejection fraction is estimated to be 60-65%. The interatrial septum is intact with no evidence for an atrial septal defect. There is mild tricuspid regurgitation. There is mild aortic valve sclerosis. There is mild mitral regurgitation. The right ventricular systolic pressure is estimated at 25 mmHg assuming a right atrial pressure of 3 mm Hg. There is no obvious cardiac source of embolus noted on this transthoracic echocardiogram. Follow-up with a SANDI is suggested if cardiac source is still suspected. Procedure: A two-dimensional transthoracic echocardiogram with color flow and Doppler was performed. The study quality was technically adequate. Comparison is made with the echocardiogram of 05/15/15. The patient was in normal sinus rhythm during the exam. Left Ventricle: The left ventricle is normal in size. There is normal left ventricular wall thickness. The ejection fraction is estimated to be 60-65%. There are no focal wall motion abnormalities. Right Ventricle: The right ventricle is normal in size and function. A calcified moderator band is seen in the right ventricle. Atria: The left atrium is moderately dilated. Right atrial size is normal. The interatrial septum is intact with no evidence for an atrial septal defect. Mitral Valve: There is mild mitral annular calcification. The mitral valve chordae are thickened and/or calcified. There is mild mitral regurgitation. Aortic Valve: The aortic valve is trileaflet. The aortic valve is mildly calcified. The aortic valve opens well. There is mild aortic valve sclerosis. No aortic regurgitation is present. Tricuspid Valve: The tricuspid valve is normal in structure and function. There is mild tricuspid regurgitation. The right ventricular systolic pressure is estimated at 25 mmHg assuming a right atrial pressure of 3 mm Hg. Pulmonic Valve: The pulmonic valve is normal in structure and function. There is trace pulmonic regurgitation. Great Vessels: The aortic root is normal size. The dimensions of the ascending aorta are normal. The pulmonary artery is normal size. The IVC is of normal diameter and collapses greater than 50% with a sniff. This suggests a low right atrial pressure of 3 mm Hg. Pericardium/ Pleura There is no pericardial effusion. There is no pleural effusion. MMode/2D Measurements & Calculations LVIDd: 5.0 cm LA dimension: 4.3 cm RA long axis LVOT diam LVIDs: 2.9 cm FS: 41.5 % LA A2 area: 24.1 cm RA area Ao root diam EPSS: 0.27 cm LA A4 area: 26.3 cm IVSd: 1.1 cm LA length (vol): 6.0 cm : 16.6 cm Aortic Jxn LVPWd: 0.98 cm LA vol: 89.6 ml RA vol: 50.0 ml LA vol index RA asc Aorta : 26.3 mm2 Diam: 3.4 cm IVC diam: 1.5 cm LV goodrich. diameter/BSA LV sys. diameter/BSA (cm/m^2): 2.6 (cm/m^2): 1.5 Doppler Measurements & Calculations Ao V2 max MV E max ivan MV E/A: 0.73 TR max ivan : 203.3 cm/sec : 81.6 cm/sec Med Peak E' Ivan : 234.2 cm/sec Ao max P.5 mmHg MV A max ivan TR max PG Ao mean P.7 mmHg : 111.5 cm/sec E/E' med: 13.5 : 21.9 mmHg LVOT Max Ivan Lat Peak E' Ivan PA V2 max : 114.8 cm/sec : 122.8 cm/sec E/E' lat: 13.5 PA mean PG RACHEL(I,D): 2.6 cm E/e' average sev ratio: 0.67 PA Accel Time Pulm A Revs Dur : 0.15 sec MV A dur : 0.13 sec MV dec time: 0.23 secAo V2 mean LV V1 max PG PA V2 mean : 140.8 cm/sec : 93.7 cm/sec Ao V2 VTI: 48.4 cm LV V1 VTI PA pr(Accel) : 32.2 cm : 9.1 mmHg RACHEL(V,D): 2.2 cm2 RACHEL indexed to BSA Pulm Giovani Revs Dur - MV A (cm^2/m^2): 1.4 Dur: -0.01 msec Electronically signed by: Panfilo Mccauley on Reading Physician:09/12/2016 11:14 AM
[2016-09-12] MEDS ORDERED: BUSP15TA3 PO (15:18)
[2016-09-12] MEDS ORDERED: LABE100T4 PO (15:19)
[2016-09-12] MEDS: BusPIRone 15 mg Dividose Tablet PO SCH ×2 (15:19→20:20)
--- NOTE | 2016-09-12 16:18 | NUR ---
Social Work: Readiness for discharge Data: Pt is on day 2 of hospitalization. EMR reviewed. states pt will d/c tomorrow. SPRAY PAINTING MACHINE OPERATOR met with pt at bedside, discussed HH with her. requested HH for pt for RN, SPRAY PAINTING MACHINE OPERATOR, PT, OT. Pt agreeable to HH, HH choice list given, no preference stated. SPRAY PAINTING MACHINE OPERATOR referred pt to [facility], spoke with Earle Aparicio. F2F ready for MD to sign, in SPRAY PAINTING MACHINE OPERATOR folder. SPRAY PAINTING MACHINE OPERATOR will continue to follow. Assessment: Pt who is independent at baseline. Plan: Pt will d/c home via POV with friend or family when medically stable, likely tomorrow, with [facility], RN/PT/OT/SPRAY PAINTING MACHINE OPERATOR. SPRAY PAINTING MACHINE OPERATOR will continue to follow. JAMES Ramirez
--- NOTE | 2016-09-12 22:55 | PCM.PNMED ---
Subjective Date of Service Sep 12, 2016 Subjective The patient did not been examined. She states that she does become dangerous a lot she is to be on Xanax. Also discussed home care health with her to assist her with any possible syncopal events. We also discussed her not driving when she sees her hospital orderly once she goes home. She is agreeable to this. No new complaints Exam Vital Signs Vital Sign - Last Date Time Temp Pulse Resp B/P Pulse Ox O2 Delivery O2 Flow Rate FiO2 09/12/16 20:28 36.6 69 17 156/73 99 Room Air 09/10/16 14:39 2 Intake and Output 09/11/16 09/11/16 09/12/16 Cumulative From/Thru 14:59 22:59 06:59 09/10/16 14:39 - 09/11/16 19:18 Intake Total 836 ml 1934 ml Output Total 800 ml 1651 ml Balance 36 ml 283 ml Intake Oral 836 ml 1473 ml IV Total 461 ml Output Urine Total 800 ml 1650 ml Urine/Stool Mix 1 ml # Voids 1 # Bowel Movements 0 Exam Gen.: No acute distress HEENT: Right-sided facial droop as before Heart: Regular rate and rhythm, mild systolic murmur without radiation Lungs: Clear to auscultation no crackles or wheezes Abdomen soft nondistended Psych: Positive for anxiety Neurological: Once again patient is afraid of losing balance with Romberg's, facial droop as above Above IVs and Medications IV Fluids None Medications Reviewed: Medications were reviewed in detail Lab and Diagnostics CBC Test 09/10/16 15:18 09/11/16 06:05 Hold Purple Top Tube Received (Received) White Blood Count 5.9th/mm3 (3.8-10.1) Red Blood Count 4.08mil/mm3 (3.90-5.20) Hemoglobin 12.2g/dL (12.0-15.6) Hematocrit 36.0% (35.0-46.0) Mean Corpuscular Volume 88.2fL (81-100) Mean Corpuscular Hemoglobin 29.9pg (27.0-35.0) Mean Corpuscular Hemoglobin Concent 33.9% (32.0-37.0) Red Cell Distribution Width 12.5% (12.3-15.4) Platelet Count 246bil/L (150-400) Neutrophils (%) (Auto) 56.7% (40-74) Lymphocytes (%) (Auto) 28.7% (14-46) Monocytes (%) (Auto) 11.0% (4-12) Eosinophils (%) (Auto) 3.2% (0-5) Basophils (%) (Auto) 0.2% (0-3) CMP Test 09/10/16 14:54 09/10/16 15:18 09/11/16 06:05 Hemoglobin A1c 5.4% Total Bilirubin 0.5mg/dL Aspartate Amino Transf (AST/SGOT) 20U/L Alanine Aminotransferase (ALT/SGPT) 14U/L Alkaline Phosphatase 50U/L Troponin T < 0.010ug/L Total Protein 7.3g/dL Albumin 4.1g/dL Magnesium Level 2.3mg/dL Triglycerides Level 177mg/dL Cholesterol Level 176mg/dL LDL Cholesterol, Calculated 65.600mg/dL VLDL Cholesterol 35.400mg/dL HDL Cholesterol 75mg/dL Cholesterol/HDL Ratio 2.35 Hold Thompson Top Tube Received Hold Morris Top Tube Received Sodium Level 143mEq/L Potassium Level 4.3mEq/L Chloride Level 107mEq/L Carbon Dioxide Level 24mmol/L Blood Urea Nitrogen 23mg/dL Creatinine 1.11mg/dL Estimat Glomerular Filtration Rate 67mL/min Glucose Level 90mg/dL Calcium Level 9.7mg/dL Result Diagram: 09/11/16 0605 09/11/16 0605 X-Rays, CTs and MRIs [facility] Diagnostic [place] [address] Patient Name: DALLIN BEY MR#: [id number] [place] [facility] [place] Phys: Zane Phillip DO Date of Service: 09/10/16 1451 PROCEDURE: CT BRAIN (TPA) ([id number]) INDICATIONS: Stroke TECHNIQUE: Noncontrast 4.5 mm thick angled axial sections acquired from the foramen magnum to the vertex, with coronal reformats. COMPARISON: [facility], CT, BRAIN W/O CONTRAST, 10/14/2013, 13:36. FINDINGS: Image quality: Excellent. CSF spaces: Basal cisterns are patent. No extra-axial fluid collections. The ventricles are symmetric in size and shape. Brain: No intracranial bleeds or masses. There is moderate cerebral volume loss for age, with resultant ventricular and sulcal prominence. There are mild to moderate periventricular and deep white matter chronic small vessel ischemic changes, unchanged. There is intracranial internal carotid artery atherosclerosis. Skull and face: Calvarium and visualized facial bones appear intact, without suspicious lesions. Sinuses: Small air-fluid level in the left maxillary sinus. The mastoids are clear. IMPRESSION: 1. No acute intracranial abnormalities. 2. Stable cerebral volume loss and chronic microvascular ischemic changes. 3. A small air-fluid level in the left maxillary sinus. This study fulfills neurological imaging criteria for inclusion or exclusion of acute stroke therapies based on available published neurological guidelines. Dictated by: Tk Uriostegui M.D. on 09/10/2016 at 15:08 Approved by: Tk Uriostegui M.D. on 09/10/2016 at 15:11 12-lead ECG A bundle-branch block Cardiac Echo Impressions Pending results Additional Diagnostics [facility] Diagnostic Imaging Department [place], [place] [id number] Patient Name: DALLIN BEY MR#: [id number] [place] [facility] [place] Ordering Phys: Elissa Sahu Date of Service: 09/10/161823 PROCEDURE: MRI BRAIN WITHOUT CONTRAST ([id number]) INDICATIONS: Mouth droop/CVA sxs TECHNIQUE: Noncontrast axial T1 spin echo, axial T2 fast spin echo, sagittal and axial FLAIR, coronal T2 fast spin echo, axial gradient echo, axial diffusion and ADC through the brain. COMPARISON: [facility], MR, MR ANGIO HEAD WO CON, 09/10/2016, 20: 44. [facility], CT, BRAIN (TPA), 09/10/2016, 15:01. FINDINGS: Image quality: Excellent. CSF Spaces: Basal cisterns are patent. No extra-axial fluid collections. Ventricles are normal in size and shape. Brain: No intracranial masses or hemorrhage. Mantilla/white matter interface is normal. Brainstem appears normal. Diffusion-weighted images demonstrate no acute ischemic insult. No chronic ischemic insults. Normal intravascular flow voids are present. Skull and face: Calvarium has normal marrow signal. Orbits appear normal. Sinuses: Sinuses and mastoids are clear. IMPRESSION: Moderate microvascular atherosclerotic change within the deep white matter of each hemisphere, expected for age. No acute disease. Dictated by: Dylan Yi M.D. on 09/10/2016 at 21:46 Approved by: Dylan Yi M.D. on 09/10/2016 at 21:48 [facility] Diagnostic [place] [address] Patient Name: DALLIN BEY MR#: [id number] Location: [facility] [place] Ordering Phys: Elissa Sahu DO Date of Service: 09/10/16 1824 PROCEDURE: MRA ANGIOGRAM HEAD WITHOUT CONTRAST ([id number]) INDICATIONS: MOUTH DROOP/ CVA SYMPTOMS TECHNIQUE: Noncontrast axial 3-D [id number] MR angiogram, with 3-dimensional maximum intensity projection (MIP) reformats of the internal carotid arteries and posterior circulation then performed. COMPARISON: [facility], MR, MR BRAIN WO CON, 09/10/2016, 20:49. [facility], CT, BRAIN (TPA), 09/10/2016, 15:01. FINDINGS: Image quality: Excellent. Anterior circulation: Intracranial internal carotid arteries demonstrate normal size and intraluminal flow signal. The flow within the paired anterior cerebral arteries is normal and symmetric. The flow within the middle cerebral arteries is normal and symmetric. The anterior communicating artery is seen. No stenoses, occlusions, or aneurysms. Posterior circulation: Visualized portions of the vertebral arteries demonstrate normal caliber, and join to form a normal appearing basilar artery. The flow within the posterior cerebral arteries is normal and symmetric. No stenoses, occlusions, or aneurysms. IMPRESSION: Normal intracranial MR angiogram. Dictated by: Dylan Yi M.D. on 09/10/2016 at 21:44 Approved by: Dylan Yi M.D. on 09/10/2016 at 21:46 [facility] Diagnostic [place] [address] Patient Name: DALLIN BEY MR#: [id number] Location: [facility] [place] Ordering Phys: Elissa Sahu DO Date of Service: 09/10/162021 PROCEDURE: US BILATERAL DUPLEX DOPPLER IMAGING OF THE CAROTIDS ([id number]) INDICATIONS: stroke TECHNIQUE: Color and pulse Doppler interrogation was performed of both carotid systems, with image documentation and velocity measurements. COMPARISON: None. FINDINGS: All stenosis calculations are based on NASCET criteria. Right side: Brachial blood pressure: 181/62 mm Hg. Common Carotid Artery(Distal) PSV: 52.70 cm/s Internal Carotid Artery PSV- Proximal: 74 cm/s Mid-lon.90 cm/s Distal: 100 cm/s EDV - Proximal: 17.30 cm/s Mid-lon cm/s Distal: 24.10 cm/s External Carotid Artery(Proximal) PSV: 124.10 cm/s ICA/CCA PSV ratio: 1.9 Mantilla scale imaging description: Scattered calcified plaque in the bifurcation Percent internal carotid artery stenosis: Less than 50%. Vertebral artery: Flow direction is antegrade. Left side: Brachial blood pressure: Not obtained due to IV. Common Carotid Artery(Distal) PSV: 82.90 cm/s Internal Carotid Artery PSV - Proximal: 189 cm/s Mid-lon.70 cm/s Distal: 84.40 cm/s EDV - Proximal: 30.20 cm/s Mid-lon.90 cm/s Distal: 14.30 cm/s External Carotid Artery(Proximal) PSV: 86.80 cm/s ICA/CCA PSV ratio: 50-69% Mantilla scale imaging description: Scattered plaque in the bifurcation Percent internal carotid artery stenosis: 50-69%. Vertebral artery: Flow direction is antegrade. IMPRESSION: 50-69% left ICA stenosis. Less than 50% right ICA stenosis. Dictated by: Russ Doan M.D. on 09/11/2016 at 14:18 Approved by: Russ Doan M.D. on 09/11/2016 at 14:19 Assessment & Plan This is a pleasant 86-year-old woman presenting after stroke like symptoms to the ER she is currently being followed with MRI and other stroke workup Acute assessment Assessment #1 CVA ruled out, she may have had a TIA. --Consulted her neurologist Dr. Kristin Dougherty, we appreciate her recommendations: She called this morning after she lifted the MRI results and states that patient can follow up with neurology and cardiology as outpatient. -- Telemonitoring -- MRI/MRA stroke protocol is ordered: Showed no concern for stroke -- Echo a.m.: Results of pending: Shows concern for L a dilation, plan to request outpatient 30 day heart monitor -- Continue Plavix -- Speech therapy, PT/OT -- Carotid ultrasound: Negative for severe or critical stenosis -- Continue effort to achieve optimal hypertension control -- Patient agrees to home care help, patient agrees not to drive till she sees hospital orderly Assessment #2 Anxiety: -- Patient has requested minor sedation prior to MRI due to claustrophobia -- 0.5 mg by mouth Ativan 1 time dose only to be used for MRI -- Start her on BuSpar 7.5 mg by mouth twice a day Assessment #3 BPPV: Based on patient's [place] -- Meclizine 25 mg twice a day when necessary Orthostatics were negative Chronic assessments: Assessment #2 GERD: The by mouth Assessment #3 Chronic Hypertension: I change her to labetalol 200 mg 3 times a day, switched her Cardizem 180 mg to Norvasc 10 mg. Will consider cardiology consult if optimal blood pressure is not achieved DVT prophylaxis: Heparin subcutaneous 3 times a day IV fluids: None CODE STATUS: Currently patient is saying she is okay with CPR but does not want mechanical ventilation or light support. Alternate decision-maker Ovidio Bey [phone] VTE Prophylaxis: Sub-Q Heparin (Unfractionated) Resuscitation Status: DNR/DNI:Do Not Resuscitate/Intubate (okay with CPR, does not want mechanical life support or intubation or ventilation) Elissa Sahu DO Sep 12, 2016 22:55
[2016-09-13] VITALS (10 sets, daily range): BP systolic 123–154; BP diastolic 62–77; PULSE 56–68; RESP 18–20; O2SAT 96–99
[2016-09-13] MEDS: Heparin 5,000 Unit/mL Inj SUBQ SCH (06:10)
[2016-09-13] MEDS: Artificial Tears 15 mL Ophthalmic Solution BOTH_EYES SCH (08:30)
[2016-09-13] MEDS: BusPIRone 15 mg Dividose Tablet PO SCH (08:32)
[2016-09-13] MEDS ORDERED: AMLO5TAB2 PO (09:13)
[2016-09-13] MEDS ORDERED: LABE200T PO (09:14)
[2016-09-13] MEDS ORDERED: MECL-114 PO (09:17)
--- NOTE | 2016-09-13 09:59 | NUR ---
Social Work: Discharge Data: Pt is on day 2 of hospitalization. EMR reviewed. states pt will d/c today. No further d/c planning needs at this time. COURT MAGISTRATE will continue to follow. Assessment: Pt who is independent at baseline. Plan: Pt will d/c home via POV with friend or family when today, with [facility], RN/PT/OT/COURT MAGISTRATE. No further d/c planning needs at this time. COURT MAGISTRATE will continue to follow. JAMES Ramirez
--- NOTE | 2016-09-13 10:33 | NUR ---
Pt Change of condition At approx 1000 pt reported "feeling bad again like in the restaurant right before I was admitted". Pt was slumped over in chair and mildly diaphoretic. VS taken and normal, with BP lower than pt's normal baseline, but still normal range (123/62). Pt assisted back into bed for safety with family member at side. notified, orthostatic BP's done, which were negative. Pt reporting feeling better, continuing to monitor and will report back to MD soon on status. Continuing to monitor. Addendum: 09/13/16 at 1310 by OSMAN DICKERSON RN pt improved back to baseline and has been asymptomatic since initial change of condition. VS stable. notified, who instructed to proceed with discharge.
--- NOTE | 2016-09-13 13:10 | NUR ---
Discharge Reviewed d/c instructions with pt and family in room including care notes and new prescriptions, pt signed and given originals, copies to chart. IV d/c intact, tele removed. VS stable at d/c. All belongings packed by pt in room and taken with them. Pt taken off unit via WC by DIRECTOR HARDWARE to family member car downstairs to drive pt home
--- NOTE | 2016-09-13 20:41 | PCM.DC.MED ---
Discharge Summary Date of Service Sep 13, 2016 Dates of Hospitalization Date of Hospital Admission Sep 10, 2016 at 16:44 Date of Discharge: Sep 13, 2016 Providers: Admitting Physician: Elissa Pacheco DO Primary Care Physician: Rodríguez Cantrell MD Attending Physician: Elissa Pacheco DO Diagnosis at Time of Discharge Diagnosis at Time of Discharge Syncope, vasovagal, BPPV, HTN, Hx of DVT Consultations Neurology Dr. Kristin Smith, PT/OT, speech eval Procedures XRay, CTs & MRIs [facility] Diagnostic [place] [address] Patient Name: DALLIN BEY MR#: [id number] Location: [facility] – [place] Ordering Phys: Elissa Pacheco DO Date of Service: 09/10/162021 PROCEDURE: US BILATERAL DUPLEX DOPPLER IMAGING OF THE CAROTIDS ([id number]) INDICATIONS: stroke TECHNIQUE: Color and pulse Doppler interrogation was performed of both carotid systems, with image documentation and velocity measurements. COMPARISON: None. FINDINGS: All stenosis calculations are based on NASCET criteria. Right side: Brachial blood pressure: 181/62 mm Hg. Common Carotid Artery(Distal) PSV: 52.70 cm/s Internal Carotid Artery PSV- Proximal: 74 cm/s Mid-lon.90 cm/s Distal: 100 cm/s EDV - Proximal: 17.30 cm/s Mid-lon cm/s Distal: 24.10 cm/s External Carotid Artery(Proximal) PSV: 124.10 cm/s ICA/CCA PSV ratio: 1.9 Mantilla scale imaging description: Scattered calcified plaque in the bifurcation Percent internal carotid artery stenosis: Less than 50%. Vertebral artery: Flow direction is antegrade. Left side: Brachial blood pressure: Not obtained due to IV. Common Carotid Artery(Distal) PSV: 82.90 cm/s Internal Carotid Artery PSV - Proximal: 189 cm/s Mid-lon.70 cm/s Distal: 84.40 cm/s EDV - Proximal: 30.20 cm/s Mid-lon.90 cm/s Distal: 14.30 cm/s External Carotid Artery(Proximal) PSV: 86.80 cm/s ICA/CCA PSV ratio: 50-69% Mantilla scale imaging description: Scattered plaque in the bifurcation Percent internal carotid artery stenosis: 50-69%. Vertebral artery: Flow direction is antegrade. IMPRESSION: 50-69% left ICA stenosis. Less than 50% right ICA stenosis. Dictated by: Russ Doan M.D. on 09/11/2016 at 14:18 Approved by: Russ Doan M.D. on 09/11/2016 at 14:19 [facility] Diagnostic Imaging Department [place], [place] [id number] Patient Name: DALLIN BEY MR#: [id number] Location: [facility] [place] Ordering Phys: Elissa Pacheco DO Date of Service: 09/10/16 1824 PROCEDURE: MRI BRAIN WITHOUT CONTRAST ([id number]) INDICATIONS: Mouth droop/CVA sxs TECHNIQUE: Noncontrast axial T1 spin echo, axial T2 fast spin echo, sagittal and axial FLAIR, coronal T2 fast spin echo, axial gradient echo, axial diffusion and ADC through the brain. COMPARISON: [facility], MR, MR ANGIO HEAD WO CON, 09/10/2016, 20: 44. [facility], CT, BRAIN (TPA), 09/10/2016, 15:01. FINDINGS: Image quality: Excellent. CSF Spaces: Basal cisterns are patent. No extra-axial fluid collections. Ventricles are normal in size and shape. Brain: No intracranial masses or hemorrhage. Mantilla/white matter interface is normal. Brainstem appears normal. Diffusion-weighted images demonstrate no acute ischemic insult. No chronic ischemic insults. Normal intravascular flow voids are present. Skull and face: Calvarium has normal marrow signal. Orbits appear normal. Sinuses: Sinuses and mastoids are clear. IMPRESSION: Moderate microvascular atherosclerotic change within the deep white matter of each hemisphere, expected for age. No acute disease. Dictated by: Dylan Yi M.D. on 09/10/2016 at 21:46 Approved by: Dylan Yi M.D. on 09/10/2016 at 21:48 [facility] Diagnostic Imaging Department [place], [place] [id number] Patient Name: DALLIN BEY MR#: [id number] Location: [facility] [place] Ordering Phys: Elissa Pacheco DO Date of Service: 09/10/16 1824 PROCEDURE: MRA ANGIOGRAM HEAD WITHOUT CONTRAST ([id number]) INDICATIONS: MOUTH DROOP/ CVA SYMPTOMS TECHNIQUE: Noncontrast axial 3-D [id number] MR angiogram, with 3-dimensional maximum intensity projection (MIP) reformats of the internal carotid arteries and posterior circulation then performed. COMPARISON: [facility], MR, MR BRAIN WO CON, 09/10/2016, 20:49. [facility], CT, BRAIN (TPA), 09/10/2016, 15:01. FINDINGS: Image quality: Excellent. Anterior circulation: Intracranial internal carotid arteries demonstrate normal size and intraluminal flow signal. The flow within the paired anterior cerebral arteries is normal and symmetric. The flow within the middle cerebral arteries is normal and symmetric. The anterior communicating artery is seen. No stenoses, occlusions, or aneurysms. Posterior circulation: Visualized portions of the vertebral arteries demonstrate normal caliber, and join to form a normal appearing basilar artery. The flow within the posterior cerebral arteries is normal and symmetric. No stenoses, occlusions, or aneurysms. IMPRESSION: Normal intracranial MR angiogram. Dictated by: Dylan Yi M.D. on 09/10/2016 at 21:44 Approved by: Dylan Yi M.D. on 09/10/2016 at 21:46 [facility] Diagnostic Imaging Department [place], [place] [id number] Patient Name: DALLIN BEY MR#: [id number] Location: [facility] Ordering Phys: Zane Phillip DO Date of Service: 09/10/16 1451 PROCEDURE: CT BRAIN (TPA) ([id number]) INDICATIONS: Stroke TECHNIQUE: Noncontrast 4.5 mm thick angled axial sections acquired from the foramen magnum to the vertex, with coronal reformats. COMPARISON: [facility], CT, BRAIN W/O CONTRAST, 10/14/2013, 13:36. FINDINGS: Image quality: Excellent. CSF spaces: Basal cisterns are patent. No extra-axial fluid collections. The ventricles are symmetric in size and shape. Brain: No intracranial bleeds or masses. There is moderate cerebral volume loss for age, with resultant ventricular and sulcal prominence. There are mild to moderate periventricular and deep white matter chronic small vessel ischemic changes, unchanged. There is intracranial internal carotid artery atherosclerosis. Skull and face: Calvarium and visualized facial bones appear intact, without suspicious lesions. Sinuses: Small air-fluid level in the left maxillary sinus. The mastoids are clear. IMPRESSION: 1. No acute intracranial abnormalities. 2. Stable cerebral volume loss and chronic microvascular ischemic changes. 3. A small air-fluid level in the left maxillary sinus. This study fulfills neurological imaging criteria for inclusion or exclusion of acute stroke therapies based on available published neurological guidelines. Dictated by: Tk Uriostegui M.D. on 09/10/2016 at 15:08 Approved by: Tk Uriostegui M.D. on 09/10/2016 at 15:11 [facility] Diagnostic [place] [address] Patient Name: DALLIN BEY MR#: [id number] Location: [facility] Ordering Phys: Zane Phillip DO Date of Service: 09/10/16 1451 PROCEDURE: X-RAY CHEST ONE VIEW, PORTABLE ([id number]) INDICATIONS: near syncope TECHNIQUE: One view of the chest was acquired. COMPARISON: [facility], CR, XR CHEST 1VW (PORTABLE), 04/15/2016, 14 :17. [facility], CR, XR CHEST 2VW, 03/27/2016, 15:17. FINDINGS: Surgical changes and devices: None. Lungs and pleura: No pleural effusions or pneumothorax. Lungs are clear. Mediastinum: Mediastinal contours appear normal. Heart size is normal. There is aortic atherosclerosis. Bones and chest wall: No suspicious bony lesions. Calcific tendinitis of the right shoulder is incidentally noted. Overlying soft tissues appear unremarkable. IMPRESSION: Stable chest. No acute cardiopulmonary process is suspected. Dictated by: Jostin Smith M.D. on 09/10/2016 at 14:24 Approved by: Jostin Smith M.D. on 09/10/2016 at 14:24 ECG 12 Lead A bundle-branch block Cardiac Echo Impression Pending results Other Diagnostics [facility] Diagnostic Imaging Department [place], [place] [id number] Patient Name: DALLIN BEY MR#: [id number] Location: [facility] [place] Ordering Phys: Elissa Pacheco DO Date of Service: 09/10/161823 PROCEDURE: MRI BRAIN WITHOUT CONTRAST ([id number]) INDICATIONS: Mouth droop/CVA sxs TECHNIQUE: Noncontrast axial T1 spin echo, axial T2 fast spin echo, sagittal and axial FLAIR, coronal T2 fast spin echo, axial gradient echo, axial diffusion and ADC through the brain. COMPARISON: [facility], MR, MR ANGIO HEAD WO CON, 09/10/2016, 20: 44. [facility], CT, BRAIN (TPA), 09/10/2016, 15:01. FINDINGS: Image quality: Excellent. CSF Spaces: Basal cisterns are patent. No extra-axial fluid collections. Ventricles are normal in size and shape. Brain: No intracranial masses or hemorrhage. Mantilla/white matter interface is normal. Brainstem appears normal. Diffusion-weighted images demonstrate no acute ischemic insult. No chronic ischemic insults. Normal intravascular flow voids are present. Skull and face: Calvarium has normal marrow signal. Orbits appear normal. Sinuses: Sinuses and mastoids are clear. IMPRESSION: Moderate microvascular atherosclerotic change within the deep white matter of each hemisphere, expected for age. No acute disease. Dictated by: Dylan Yi M.D. on 09/10/2016 at 21:46 Approved by: Dylan Yi M.D. on 09/10/2016 at 21:48 [facility] Diagnostic Imaging Department [place], [place] [id number] Patient Name: DALLIN BEY MR#: [id number] Location: [facility] [place] Ordering Phys: Elissa Pacheco DO Date of Service: 09/10/161823 PROCEDURE: MRA ANGIOGRAM HEAD WITHOUT CONTRAST ([id number]) INDICATIONS: MOUTH DROOP/ CVA SYMPTOMS TECHNIQUE: Noncontrast axial 3-D [id number]-wc-[id number] MR angiogram, with 3-dimensional maximum intensity projection (MIP) reformats of the internal carotid arteries and posterior circulation then performed. COMPARISON: [facility], MR, MR BRAIN WO CON, 09/10/2016, 20:49. [facility], CT, BRAIN (TPA), 09/10/2016, 15:01. FINDINGS: Image quality: Excellent. Anterior circulation: Intracranial internal carotid arteries demonstrate normal size and intraluminal flow signal. The flow within the paired anterior cerebral arteries is normal and symmetric. The flow within the middle cerebral arteries is normal and symmetric. The anterior communicating artery is seen. No stenoses, occlusions, or aneurysms. Posterior circulation: Visualized portions of the vertebral arteries demonstrate normal caliber, and join to form a normal appearing basilar artery. The flow within the posterior cerebral arteries is normal and symmetric. No stenoses, occlusions, or aneurysms. IMPRESSION: Normal intracranial MR angiogram. Dictated by: Dylan Yi M.D. on 09/10/2016 at 21:44 Approved by: Dylan Yi M.D. on 09/10/2016 at 21:46 [facility] Diagnostic [place] [address] Patient Name: DALLIN BEY MR#: [id number] Location: [facility] [place] Ordering Phys: Elissa Pacheco DO Date of Service: 09/10/162021 PROCEDURE: US BILATERAL DUPLEX DOPPLER IMAGING OF THE CAROTIDS ([id number]) INDICATIONS: stroke TECHNIQUE: Color and pulse Doppler interrogation was performed of both carotid systems, with image documentation and velocity measurements. COMPARISON: None. FINDINGS: All stenosis calculations are based on NASCET criteria. Right side: Brachial blood pressure: 181/62 mm Hg. Common Carotid Artery(Distal) PSV: 52.70 cm/s Internal Carotid Artery PSV- Proximal: 74 cm/s Mid-lon.90 cm/s Distal: 100 cm/s EDV - Proximal: 17.30 cm/s Mid-lon cm/s Distal: 24.10 cm/s External Carotid Artery(Proximal) PSV: 124.10 cm/s ICA/CCA PSV ratio: 1.9 Mantilla scale imaging description: Scattered calcified plaque in the bifurcation Percent internal carotid artery stenosis: Less than 50%. Vertebral artery: Flow direction is antegrade. Left side: Brachial blood pressure: Not obtained due to IV. Common Carotid Artery(Distal) PSV: 82.90 cm/s Internal Carotid Artery PSV - Proximal: 189 cm/s Mid-lon.70 cm/s Distal: 84.40 cm/s EDV - Proximal: 30.20 cm/s Mid-lon.90 cm/s Distal: 14.30 cm/s External Carotid Artery(Proximal) PSV: 86.80 cm/s ICA/CCA PSV ratio: 50-69% Mantilla scale imaging description: Scattered plaque in the bifurcation Percent internal carotid artery stenosis: 50-69%. Vertebral artery: Flow direction is antegrade. IMPRESSION: 50-69% left ICA stenosis. Less than 50% right ICA stenosis. Dictated by: Russ Doan M.D. on 09/11/2016 at 14:18 Approved by: Russ Doan M.D. on 09/11/2016 at 14:19 Brief History 86-year-old pleasant female with past medical history of CVA, TIA, hypertension, sensory issues in the lower extremities, DVT in left leg 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, cataracts, had a hernia, small pneumonia, stones, skin cancer is present during after suffering a presyncopal event after she ate lunch with a couple of her friends. She states that she just felt like she had tunnel vision with black and white spots and they felt like she was about to lose consciousness. At the time she felt light light headed, was diaphoretic, felt to week in arms and legs, fatigue and said she was aphasic. All her symptoms quickly resolved. She was taken to the ER where stroke assessment was done a stroke scale of 2 was given TPA was offered and patient declined. She confirms this in the room. She was given baby aspirin. Her troponin was negative. Chest x-ray was no acute except small air-fluid level in the maxillary sinus. EKG showed right bundle branch block. Labs showed a creatinine of 1.5 to B UN of 29. A CT of head showed only chronic microvascular ischemic changes and negative for acute findings. Patient currently has mild headache, no weakness nor numbness tingling over the face no chest pain no abdominal pain no indigestion. She denies shortness of breath An echo done on 05/15/15 showed 60-65% E ejection fraction, moderate dilation of left atrium, mild increased dimetria V aorta. In the room patient states she is back to her baseline, her weakness symptoms have resolved completely, she is carrying on a conversation in fact she was able to give very detailed history. She is a great historian. Hospital Course This is a pleasant 86-year-old woman presenting after stroke like symptoms to the ER she is currently being followed with MRI and other stroke workup Acute assessment Assessment #1 CVA ruled out, she may have had a TIA. --Consulted her neurologist Dr. Kristin Dougherty, we appreciate her recommendations: She called this morning after she lifted the MRI results and states that patient can follow up with neurology and cardiology as outpatient. -- Telemonitoring -- MRI/MRA stroke protocol is ordered: Showed no concern for acute stroke -- Echo a.m.: Results of pending: Shows concern for L a dilation, we request the PCP that patient be given outpatient 30 day heart monitor -- Continue Plavix. -- Speech therapy, PT/OT -- Carotid ultrasound: Negative for severe or critical stenosis -- Continue effort to achieve optimal hypertension control -- Patient agrees to home care help, patient agrees not to drive till she sees landman -- Home care visits to ensure patient's safety Assessment #2 Anxiety: -- Patient has requested minor sedation prior to MRI due to claustrophobia -- 0.5 mg by mouth Ativan 1 time dose only to be used for MRI -- Start her on BuSpar 7.5 mg by mouth twice a day Assessment #3 BPPV: Based on patient's [place] -- Meclizine 25 mg twice a day when necessary --Orthostatics were negative Chronic assessments: Assessment #2 GERD: The by mouth Assessment #3 Chronic Hypertension: I change her to labetalol 200 mg 3 times a day, stopped her Cardizem 180 mg. started Norvasc 10 mg. increased lisinopril to 20 mg twice a day. On the day of discharge patient was normotensive, feeling well. She had a minor episode of having to sit down prior to leaving for staff. However her orthostatics were negative, vital signs are stable after drinking some water she felt better and she was discharged home DVT prophylaxis: Heparin subcutaneous 3 times a day IV fluids: None CODE STATUS: Currently patient is saying she is okay with CPR but does not want mechanical ventilation or light support. Alternate decision-maker Ovidio Bey [phone] Exam Vital Signs (Last) Date Time Temp Pulse Resp B/P Pulse Ox O2 Delivery O2 Flow Rate FiO2 09/13/16 08:52 36.4 68 18 151/74 99 Room Air 09/10/16 14:39 2 Test 09/10/16 14:54 09/10/16 15:18 4/4/17 23:23 09/11/16 06:05 Prothrombin Time 10.6sec (8.1-12.5) Prothromb Time International Ratio 0.99ratio Activated Partial Thromboplast Time 21.4sec (22.8-33.0) Hemoglobin A1c 5.4% (4.8-5.6) Total Bilirubin 0.5mg/dL (0.0-1.2) Aspartate Amino Transf (AST/SGOT) 20U/L (0-50) Alanine Aminotransferase (ALT/SGPT) 14U/L (0-32) Alkaline Phosphatase 50U/L (25-165) Troponin T < 0.010ug/L (0.0-0.011) Total Protein 7.3g/dL (6.4-8.4) Albumin 4.1g/dL (3.4-5.0) Hold Purple Top Tube Received (Received) Hold Blue Top Tube Received (Received) Magnesium Level 2.3mg/dL (1.6-2.6) Triglycerides Level 177mg/dL (0-149) Cholesterol Level 176mg/dL (100-199) LDL Cholesterol, Calculated 65.600mg/dL (0-99) VLDL Cholesterol 35.400mg/dL HDL Cholesterol 75mg/dL (>39) Cholesterol/HDL Ratio 2.35 (0.0-4.4) Hold [place] Top Tube Received (Received) Hold [place] Top Tube Received (Received) Urine Color Straw (YELLOW) Urine Appearance Slightly cloudy Urine pH 6.0 (5.0-8.0) Urine Specific [place] 1.005 (1.003-1.035) Urine Protein Negativemg/dL (NEG,TRACE) Urine Glucose (UA) Negativemg/dL (NEGATIVE) Urine Ketones Negativemg/dL (NEGATIVE) Urine Occult Blood Trace (NEGATIVE) Urine Nitrite Negative (NEGATIVE) Urine Bilirubin Negative (NEGATIVE) Urine Urobilinogen Normalmg/dL (NORMAL) Urine Leukocyte Esterase Large (NEGATIVE) Urine RBC 0-2/hpf (0-2) Urine WBC 11-50/hpf (0-5) Urine Epithelial Cells Moderate/hpf (NONE-MOD) Urine Crystals None seen (NONE SEEN) Urine Bacteria Moderate/hpf (NONE-FEW) Urine Hyaline Casts None/lpf (NONE) Urine Granular Casts None seen (NONE SEEN) Urine Waxy Casts None seen (NONE SEEN) Urine Red Blood Cell Casts None seen (NONE SEEN) Urine White Blood Cell Casts None seen (NONE SEEN) Urine Mucus None seen (None Seen) Urine Trichomonas None seen (NONE SEEN) Urine Yeast None (NONE SEEN) Urinalysis Comment None Urine Culture Reflexed Indicated White Blood Count 5.9th/mm3 (3.8-10.1) Red Blood Count 4.08mil/mm3 (3.90-5.20) Hemoglobin 12.2g/dL (12.0-15.6) Hematocrit 36.0% (35.0-46.0) Mean Corpuscular Volume 88.2fL (81-100) Mean Corpuscular Hemoglobin 29.9pg (27.0-35.0) Mean Corpuscular Hemoglobin Concent 33.9% (32.0-37.0) Red Cell Distribution Width 12.5% (12.3-15.4) Platelet Count 246bil/L (150-400) Neutrophils (%) (Auto) 56.7% (40-74) Lymphocytes (%) (Auto) 28.7% (14-46) Monocytes (%) (Auto) 11.0% (4-12) Eosinophils (%) (Auto) 3.2% (0-5) Basophils (%) (Auto) 0.2% (0-3) Test 09/13/16 05:45 Sodium Level 145mEq/L (134-144) Potassium Level 4.2mEq/L (3.5-5.2) Chloride Level 106mEq/L (97-108) Carbon Dioxide Level 23mmol/L (18-29) Blood Urea Nitrogen 24mg/dL (8-27) Creatinine 1.14mg/dL (0.57-1.00) Estimat Glomerular Filtration Rate 65mL/min (>59) Glucose Level 99mg/dL (60-99) Calcium Level 10.1mg/dL (8.5-10.1) Discharge Medications Discharge Medications Amlodipine (Amlodipine) 5 Mg Tablet 10 MG PO DAILY Prescribed by: ELISSA PACHECO DO Buspirone (Buspirone) 15 Mg Tablet 7.5 MG PO BID Prescribed by: ELISSA PACHECO DO Cholecalciferol (Vitamin D3) (Vitamin D3) 1,000 Unit Tab.chew 1,000 UNIT PO DAILY (Reported) Clopidogrel (Clopidogrel) 75 Mg Tablet 75 MG PO DAILY (Reported) Dextran 70/Hypromellose/Pf (Artificial Tears Drops) 1 Each Droperette 1 DROP BOTH_EYES DAILY (Reported) Labetalol (Labetalol) 200 Mg Tablet 200 MG PO TID Prescribed by: ELISSA PACHECO DO Lisinopril (Lisinopril) 20 Mg Tablet 20 MG PO BID Prescribed by: ELISSA PACHECO DO Meclizine (Bonine) 25 Mg Tab.chew 25 MG PO BID Prescribed by: ELISSA PACHECO DO Multivits-Min/FA/Lycopene/Lut (Centrum Silver Tablet) 1 Each Tablet 1 EACH PO DAILY (Reported) Ranitidine (Ranitidine) 150 Mg Capsule 150 MG PO BID (Reported) Additional med instructions Please take your home medication meclizine as needed. Please work with PT/OT for 2 weeks on vestibular conditioning and exercises Please avoid turning your head too rapidly. Please follow up with your PC in 2 weeks, your neurologist in one week and [facility]man in 2 weeks. Followup Plan Follow-up plan Please schedule f/u with PCP in 2 weeks Please schedule f/u with Dr. Kristin Dsouza in one- week Please schedule f/u with Cardiology in 2 weeks PT/OT outpatient for vestibular therapy for 2 weeks for BPPV Discharge Diet: Low fat, Low Sodium Discharge Activity: No restrictions Elissa Pacheco DO Sep 13, 2016 09:18
== END 2016-09-13 13:15 | disposition home or self-care (01) | DRG 312 ==
LOC: SED 14:28 → EDBD 14:28 → INTOOBSV 16:44 → OBSVTOIN 16:44 → MPC 16:44
PROVIDERS: ADMIT Family Medicine; ATTEND Family Medicine
DX: R55 Syncope and collapse (principal); G45.9 Transient cerebral ischemic attack, unspecified; Z86.73 Personal history of transient ischemic attack (TIA), and cerebral infarction without residual deficits; Z87.891 Personal history of nicotine dependence; Z86.718 Personal history of other venous thrombosis and embolism; Z85.828 Personal history of other malignant neoplasm of skin; R29.702 NIHSS score 2; R40.2142 Coma scale, eyes open, spontaneous, at arrival to emergency department; R40.2252 Coma scale, best verbal response, oriented, at arrival to emergency department; R40.2362 Coma scale, best motor response, obeys commands, at arrival to emergency department; R40.2412 Glasgow coma scale score 13-15, at arrival to emergency department; F41.9 Anxiety disorder, unspecified; K21.9 Gastro-esophageal reflux disease without esophagitis; Z51.5 Encounter for palliative care; H81.10 Benign paroxysmal vertigo, unspecified ear

== ENCOUNTER 2017-01-05 08:13 | Emergency (ER) | payer MEDICARE ==
[~2017-01-05] VITALS: Ht 162.6 cm; Wt 77.3 kg
[~2017-01-05 08:13] MED LIST changes: +BUSP15TA3 PO; -CEPH500C PO; +CLOP75TA28 PO; -CLOP75TA3 PO; +DEXT1DRO8 BOTH_EYES; -FLAX1CAP4 PO; +LABE200T PO; +LISI-567 PO; +MECL-114 PO; -METO25TA6 PO; -NITR0.4T SL; -PRAV20TA2 PO; -VIT1CAPS8 PO
[2017-01-05 08:17] VITALS: BP 193/83; PULSE 66; RESP 15; O2SAT 99
--- NOTE | 2017-01-05 08:32 | ED.REPORT ---
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 Associated symptoms include pain that radiates up into the left side of her neck and down her arm. The patient rates the pain as an 8/10. She also complains of left knee pain but is following up with a doctor for a possible knee effusion. Patient denies losing consciousness, syncope, vision loss, numbness, weakness, nausea, vomiting, headache or trouble walking. She states that she did hit her head on the way to the ground but her head is not hurting. The patient reports that she started having leg cramps last night and went to get her medication but fell while trying to get up. Nursing Notes Stated Complaint: GLF Chief Complaint: Multiple Trauma/Fall Nursing Notes Reviewed: Yes Allergies: Coded Allergies: hydrocodone (Verified Allergy, Severe, "CAN'T BREATHE.", 01/05/17) CARDIAC PALPITATIONS iodine (Verified Allergy, Severe, Anaphylaxis, 09/10/16) latex (Verified Allergy, Severe, Rash, 09/10/16) amoxicillin (Verified Allergy, Unknown, 09/10/16) clavulanic acid (Verified Allergy, Unknown, 09/10/16) levofloxacin (Verified Allergy, Unknown, 09/10/16) simvastatin (Verified Adverse Reaction, Unknown, LEG PAIN, 01/05/17) Scheduled Amlodipine (Amlodipine) 5 Mg Tablet 10 MG PO DAILY Buspirone (Buspirone) 15 Mg Tablet 7.5 MG PO BID Cholecalciferol (Vitamin D3) (Vitamin D3) 1,000 Unit Tab.chew 1,000 UNIT PO DAILY Clopidogrel (Clopidogrel) 75 Mg Tablet 75 MG PO DAILY Dextran 70/Hypromellose/Pf (Artificial Tears Drops) 1 Each Droperette 1 DROP BOTH_EYES DAILY Labetalol (Labetalol) 200 Mg Tablet 200 MG PO TID Lisinopril (Lisinopril) 20 Mg Tablet 20 MG PO BID Meclizine (Bonine) 25 Mg Tab.chew 25 MG PO BID Multivits-Min/FA/Lycopene/Lut (Centrum Silver Tablet) 1 Each Tablet 1 EACH PO DAILY Ranitidine (Ranitidine) 150 Mg Capsule 150 MG PO BID General Time Seen by MD: 08:31 Chief Complaint Fall Hx Obtained From: Patient Arrived By: Walk-in Onset Occurred: Yesterday Symptom Duration: Since onset Caused by: Fall on ground Location: Knee left Shoulder left Quality: Painful Severity: Current: Moderate Severity: Maximum: Pain level 8 out of 10 Recent Healthcare: Recent doctor visit, Recent hospitalization Past Medical History Past Medical History Notes: 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 Rodríguez Cantrell Past Medical History Cataracts DVT Hiatal hernia pneumonia kidney stones sensory issues in lower extremities DJD skin cancer Reports: Hypertension, Stroke, Transient ischemic attack Past Surgical History bilateral knee replacement bladder back surgery Reports: Appendectomy, Cholecystectomy, Hysterectomy Family History Noncontributory Smoking History Former Smoker Social History Alcohol Use: Denies alcohol use Drug Use: Denies drug use Other Social History: Good social support, Local resident Ambulatory Status Independent Review of Systems Constitutional: Denies: Chills, Fever Respiratory: Denies: Non-productive cough, Shortness of breath Musculoskeletal: Reports: Extremity pain (left shoulder and left knee), Neck pain Skin: Denies Itching, Denies Rash Neurologic: Denies: Change LOC, Headache, Numbness, Problem walking, Syncope, Vision change, Weakness Complete sys rev & neg: except as marked. GI: Denies: Nausea, Vomiting Physical Exam Initial Vital Signs Vital Signs (First) Date Time Temp Pulse Resp B/P Pulse Ox O2 Delivery O2 Flow Rate FiO2 01/05/17 08:17 36.2 66 15 193/83 99 Room Air Initial VS: Reviewed, Vital signs abnormal General/Constitutional: Awake, Alert Neck: Supple, No swelling, No carotid bruit no c-spine tenderness Head / Eyes: Atraumatic, Normocephalic, PERRL, EOMI Respiratory / Chest: Atraumatic, Breath sounds NL, Breath sounds = bilat, No respiratory distress Cardiovascular: Heart rate NL, Regular rhythm, Heart sounds NL Upper Extremity / MS: No deformity tenderness of the distal left clavicle and trapezius pain with significant abduction of the left shoulder Lower Extremity / Pelvis / MS: Full range of motion, No deformity left knee point tenderness to the patellar Skin: Atraumatic, Color NL, No rash, Warm, Dry Neurologic: Oriented X3, Speech NL, No motor deficits, No sensory deficits Psychiatric: Affect NL, Mood NL Interpretation & Diagnostics Interpretation & Diagnostics: patient refused knee x-ray X-Ray Interpretation Xray Interpretation: IMPRESSION: Normal alignment of both acromioclavicular joints. Dictated by: Jesús Peace M.D. on 01/05/2017 at 9:31 Approved by: Jesús Peace M.D. on 01/05/2017 at 9:32 Study Performed: AC JOINTS Interpretation / Wet Read by: Interpret - Radiologist Xray Interpretation: IMPRESSION: No acute bony injuries of the left shoulder. Dictated by: Jesús Peace M.D. on 01/05/2017 at 9:29 Approved by: Jesús Peace M.D. on 01/05/2017 at 9:30 X-Ray Ordered: Shoulder left Interpretation / Wet Read by: Interpret - Radiologist Re-Eval/Medical Decision Med Decision/Clinical Course The patient presents after mechanical fall, she does not think she hit her head she did not have any loss of consciousness. There is no sign of trauma to her head. Her biggest area of concern is her left shoulder she has pain to the distal clavicle and before meals area. X-rays are negative for fracture. The patient is neurovascularly intact and has an AC separation type I. She also has isolated patellar pain but refused an x-ray. Re-Evaluation/Progress : Time of Eval: 09:55 Re-Evaluation/Progress Note: Discussed results and plan for discharge. Patient understands and agrees to the plan. All questions were addressed. Counseled Regarding: Diagnosis, Lab results, Need for follow-up, When/why to return to ED Discharge & Departure Impression: Primary Impression: Fall Encounter type: initial encounter Qualified Code: W19.XXXA - Unspecified fall, initial encounter Additional Impression: Separation of AC joint, type 1 Encounter type: initial encounter Laterality: left Qualified Code: S43.102A - Unspecified dislocation of left acromioclavicular joint, initial encounter Disposition: Home Discharge Condition All VS Reviewed: Yes Condition: Stable Patient Instructions: Acromioclavicular Separation (ED), Early Postoperative or Post Injury Shoulder Exercises (ED) Additional Instructions: Your X-ray was normal and reassuring. There was no evidence of a fracture but there was a slight separation of the AC joint. This is a separation of the collar bone from the shoulder blade. You can take Tylenol as needed for pain. You can also try using ice to help reduce pain and swelling. Follow up with your primary care physician in a week to start physical therapy in 5-7 days. Continue to move your shoulder as tolerated by pain or you will develop frozen shoulder, which is painful and can continue to limit your range of motion of your shoulder. Return to the emergency department if you develop any new or concerning symptoms. Referrals: Rodríguez Cantrell MD (PCP) Andreinaiballen Attestation Portions of this note were transcribed by Olimpia Smith. I, Dr. Thompson personally performed the history, physical exam and medical decision-making; I reviewed and confirmed the accuracy of the information in the transcribed note. Signed by: Fanny Moreno, 01/05/17 copies to: Rodríguez Cantrell MD, Jena M MD Jan 05, 2017 08:32 Marni Smith Jan 05, 2017 08:42
--- NOTE | 2017-01-05 09:33 | DRSVH ---
PROCEDURE: X-RAY LEFT SHOULDER, MINIMUM TWO VIEWS ([id number]) INDICATIONS: 86 year-old female with left shoulder pain after fall. TECHNIQUE: 4 views of the shoulder were acquired. COMPARISON: None. FINDINGS: Bones: No fractures or dislocations. No suspicious bony lesions. Visualized ribs appear intact. Soft tissues: No suspicious soft tissue calcifications. IMPRESSION: No acute bony injuries of the left shoulder. Dictated by: Jesús Peace M.D. on 01/05/2017 at 9:29 Approved by: Jesús Peace M.D. on 01/05/2017 at 9:30
--- NOTE | 2017-01-05 09:34 | DRSVH ---
PROCEDURE: X-RAY BILATERAL ACROMIOCLAVICULAR JOINTS ([id number]) INDICATIONS: 86 year-old female with left shoulder pain after fall. TECHNIQUE: Single view of both acromioclavicular joints acquired. COMPARISON: None. FINDINGS: Bones: No fractures or dislocations. Patient was unable to tolerate weightbearing views for further evaluation. No suspicious bony lesions. Superior ribs appear normal. Soft tissues: No suspicious soft tissue calcifications. There is aortic atherosclerosis. IMPRESSION: Normal alignment of both acromioclavicular joints. Dictated by: Jesús Peace M.D. on 01/05/2017 at 9:31 Approved by: Jesús Peace M.D. on 01/05/2017 at 9:32
== END 2017-01-05 10:10 | disposition home or self-care (01) ==
LOC: SED 08:13
DX: S43.102A Unspecified dislocation of left acromioclavicular joint, initial encounter (principal); I10 Essential (primary) hypertension; Z87.891 Personal history of nicotine dependence; Z79.01 Long term (current) use of anticoagulants; Z86.73 Personal history of transient ischemic attack (TIA), and cerebral infarction without residual deficits; Z86.718 Personal history of other venous thrombosis and embolism; W01.0XXA Fall on same level from slipping, tripping and stumbling without subsequent striking against object, initial encounter; Y93.9 Activity, unspecified; Y92.009 Unspecified place in unspecified non-institutional (private) residence as the place of occurrence of the external cause; Y99.8 Other external cause status